=== PATIENT | female | born 1950 | race Two or more races ===

== ENCOUNTER 2024-12-08 11:40 | Day surgery (SDC) | payer OTHER, SELFPAY ==
[2024-12-08] VITALS (9 sets, daily range): BP systolic 124–158; BP diastolic 93–104; PULSE 98–113; RESP 13–20; TEMP 36.4–36.8; O2SAT 95–100; BMI 36.3
[2024-12-08] MEDS: SODIUM CHLORIDE 0.9% 500 ML 500 ML 20 ML IV (13:11)
[2024-12-08] MEDS: MIDAZOLAM INJ 1 MG/ML VIAL 2 ML (ASD USE ONLY) 2 MG IVP (13:19)
[2024-12-08] MEDS: fentaNYL CIT INJ 50 mCg/ML AMP 2ML (ASD USE ONLY) IVP (13:25)
--- NOTE | 2024-12-08 15:38 | SUR.PHASEII ---
1331 patient into recovery with no acute distress noted, v/s stable, no complaints of pain or nausea at this time, patient actively passing flatus, report received from madelyn alex. 1345 patient repositions self for comfort, patient denies pain and nausea, patient continues to pass flatus. 1350 patient drinking water with no difficulty. 1405 patient ambulates to bathroom with no assistance needed, with a steady gait. 1415 d/c instructions given to patient and patient's . 1420 patient d/c home.
== END 2024-12-08 14:20 | disposition home or self-care (01) ==
PROVIDERS: Referring Provider Specialist; Visit Provider Specialist
PROC: 0DBE8ZX Excision of Large Intestine, Via Natural or Artificial Opening Endoscopic, Diagnostic (ICD-10-PCS; CPT 45380; principal; 2024-12-08 12:00)
DX: K52.9 Noninfective gastroenteritis and colitis, unspecified (principal); K63.89 Other specified diseases of intestine; K62.89 Other specified diseases of anus and rectum; K64.9 Unspecified hemorrhoids; K57.30 Diverticulosis of large intestine without perforation or abscess without bleeding
CPT/HCPCS: 45380; J1200; J2250; J3010; J7999